=== PATIENT | female | born 1980 | race African-American/Black ===

== ENCOUNTER 2016-07-12 07:48 | Emergency (ER) | payer OTHER ==
--- NOTE | ~2016-07-12 | CR63 ---
[facility]. [facility] A Service of [facility] & [facility] RADIOLOGY TEXT RESULTS PATIENT: OTILIA HOLT LOCATION: SED : 82 UNIT #: [id number] AGE: [address]: Fortunato Morin MD SEX: F ORDER DR: [id number] [address] [id number] E MR#: [id number] Acc #: [id number] NAME: OTILIA HOLT. : 1980 SEX: F STUDY DATE/TIME: 07/12/2016 8:21 UNIT: SED ROOM: STUDY DESCRIPTION: CR Chest 2 View Attending Physician: Fortunato Morin M.D. Ordering Physician: Fortunato Morin M.D. Primary Care Physician: [facility], [facility] MEDICAL IMAGING REPORT This report is preliminary unless electronic signature is present. EXAM PA and lateral chest radiograph, 07/12/2016. COMPARISON STUDIES 01/09/2014 HISTORY Left-sided chest pain, tachycardia, and short of breath beginning last night. FINDINGS PA and lateral views of the chest are obtained. The cardiovascular configuration is normal, and the lungs are clear. CONCLUSION Normal chest. Dictated by... Jose Francisco Okeefe M.D. THIS IS AN ELECTRONICALLY VERIFIED REPORT Jose Francisco Okeefe M.D. at 07/13/2016 3:10 PM Ramirez TD: 07/12/2016 13:53 JOB #: [id number] MEDICAL IMAGING REPORT Page 1 of 1
--- NOTE | ~2016-07-12 | EKG ---
PATIENT: OTILIA HOLT UNIT #: [id number] Ventricular Rate: 110 BPM Atrial Rate: 110 BPM P-R Interval: 144 ms QRS Duration: 84 ms Q-T Interval: 344 ms QTC Calculation(Bezet): 465 ms P [place]: 46 degrees Calculated R [place]: 7 degrees Calculated T [place]: 39 degrees Diagnosis Line: Sinus tachycardia Diagnosis Line: Poor R wave progression questionable lead position Diagnosis Line: or body habitus Nonspecific ST abnormality Diagnosis Line: Otherwise normal ECG Diagnosis Line: When compared with ECG of 09-JAN-2014 21:57, Diagnosis Line: No significant change was found Diagnosis Line: Confirmed by CIPRIANO DESIR MD ([id number]) on 07/18/2016 Diagnosis Line: 11:08:33 PM INTERPRETING MD: KARLEE WILSON
[~2016-07-12 07:48] MED LIST: ABILIFY PO; BACLOFEN20 MG; CERTAGEN PO; FLAGYL PO; FLEXERIL10 MG PO; HYDROCHLOROTHIA25 MG PO; LEVEMIR100 UNITS/ INJ; NAPROXEN PO; NEURONTIN; ORUDIS75 M1 PO; PRENATAL1 TA1 PO; RITALIN PO; ZANTAC PO
[2016-07-12] MEDS ORDERED: INVOKANA300 MG (07:49)
[2016-07-12] MEDS ORDERED: IRON1 TAB PO (07:49)
[2016-07-12] MEDS ORDERED: GLUCOPHAGE XR500 MG PO (07:49)
[2016-07-12] MEDS ORDERED: RITALIN PO (07:49)
[2016-07-12 08:29] LABS: BASOPHIL# 0.1 X10e3 (0-0.3); BASOPHIL% 0.8 % (0-2.5); EOSINOPHIL# 0.1 X10e3 (0-0.7); EOSINOPHIL% 1.5 % (0.0-7.0); HEMATOCRIT 41.3 % (35.0-45.0); HEMOGLOBIN 13.9 gm/dL (12.0-16.0); LYMPHOCYTE# 3.1 X10e3 (1.0-3.5); LYMPHOCYTE% 39.8 % (17.0-45.0); MEAN CELL VOLUME 97.1 FL (83-96); MEAN CORPUSCULAR HEMOGLOBIN 32.5 PG (28-34); MEAN CORPUSCULAR HGB CONC 33.5 g/dL (30-36); MEAN PLATELET VOLUME 7.2 FL (6.5-11.5); MONOCYTE# 0.5 X10e3 (0-1.0); MONOCYTE% 6.6 % (3.0-12.0); NEUTROPHIL# 3.9 X10e3 (1.5-7.1); NEUTROPHIL% 51.3 % (40-75); PLATELET COUNT 335 X10e3 (140-420); RED BLOOD COUNT 4.26 X10e (3.90-5.30); RED CELL DISTRIBUTION WIDTH 13.8 % (11.0-15.5); WHITE BLOOD COUNT 7.7 X10e3 (4.0-10.5)
[2016-07-12 08:35] LABS: DIFF IND NO
[2016-07-12 08:42] LABS: POC - CKMB <1.0 ng/mL (0.0-7.9); POC - MYOGLOBIN 34.2 ng/mL (0.0-169.0)
[2016-07-12 08:43] LABS: POC - TROPONIN <0.05 ng/mL (<=0.05)
[2016-07-12 08:50] LABS: ALBUMIN SERUM 3.8 g/dL (3.5-5.0); ALKALINE PHOSPHATASE 74 U/L (32-92); ALT (SGPT) 28 U/L (10-40); AST (SGOT) 16 U/L (10-42); BILIRUBIN,TOTAL 0.4 mg/dL (0.2-2.0); BLOOD UREA NITROGEN 18 mg/dL (9-23); CALCIUM SERUM 9.2 mg/dL (8.4-10.2); CARBON DIOXIDE 27 mmol/L (22-31); CHLORIDE 103 mmol/L (100-111); CREATININE SERUM 0.8 mg/dL (0.6-1.4); GLOM FILT RATE Estimated ABOVE60 mL/min (>60); GLUCOSE FASTING 238 mg/dL (70-110); POTASSIUM 4.3 mmol/L (3.5-5.1); PROTEIN TOTAL SERUM 7.9 g/dL (6.0-8.3); SODIUM 137 mmol/L (135-145)
[2016-07-12 08:51] LABS: BILIRUBIN, DIRECT <0.1 mg/dL (0.0-0.2); BILIRUBIN,INDIRECT 0.3 mg/dL (0.0-0.9)
== END 2016-07-12 09:03 | disposition home or self-care (01) ==
LOC: SED 07:48
PROVIDERS: Emergency Medicine
DX: R07.89 Other chest pain (principal); E11.65 Type 2 diabetes mellitus with hyperglycemia; F41.9 Anxiety disorder, unspecified; F17.200 Nicotine dependence, unspecified, uncomplicated; Z88.8 Allergy status to other drugs, medicaments and biological substances; Z91.040 Latex allergy status; Z79.899 Other long term (current) drug therapy; Z79.4 Long term (current) use of insulin
CPT/HCPCS: 36415; 71020; 80048; 80076; 82553; 82947; 83874; 84484; 85025; 93005; 96361; 96374; 96375; 99284; J1885; J2405